=== PATIENT | male | born 1995 | race American Indian/Alaskan Native ===

== ENCOUNTER 2021-03-12 10:55 | Emergency (ER) | payer OTHER, SELFPAY ==
[2021-03-12 11:32] VITALS: BP 117/68
[2021-03-12] MEDS ORDERED: ACETAMINOPHEN 325 MG TAB PO ONE (12:04)
[2021-03-12] MEDS ORDERED: ONDANSETRON 4 MG ODT TAB PO ONE (12:04)
--- NOTE | 2021-03-12 12:05 | Emergency Department Report ---
ED General Adult HPI - General Chief complaint: Upper Respiratory Infection Stated complaint: FLU SX/SOB/N/V PUI?: Yes Time Seen by Provider: 03/12/21 11:34 Source: patient, EMS ( EMS documentation not available at time of chart dictation ), RN notes reviewed Mode of arrival: Ambulatory Limitations: No Limitations - History of Present Illness Initial comments: The patient was evaluated in the emergency department for symptoms described in the history of present illness. He/she was evaluated in the context of the global COVID-19 pandemic, which necessitated consideration that the patient might be at risk for infection with the virus that causes COVID-19. Institutional protocols and algorithms that pertain to the evaluation of patients at risk for COVID-19 are in a state of rapid change based on information released by regulatory bodies including the CDC and federal and state organizations. These policies and algorithms were followed during the patient's care in the emergency department. Please note that these policies, procedures and recommendations changed on a rapid basis. During the entire history and physical examination, I had on complete personal protective equipment. The patient is a 25-year-old gentleman, who has a past medical history of not being vaccinated against COVID-19, and who also consumes recreational marijuana. His primary care doctor is with a [facility]. He presents to the ER with 1 day of shortness of breath, nausea, vomiting, diarrhea, headache, generalized weakness, loss of taste and smell. He states "do whatever you have to do to get me better, I am ready for that s hot." The patient reports that he has not taken anything [id number] for his symptoms. The patient denies sick contacts. The patient denies urinary symptoms. -: Gradual, hour(s) Location: head, back, left, right, upper extremity, lower extremity Quality: aching Consistency: intermittent Improves with: rest Worsens with: movement - Related Data Previous Rx's Medication Instructions Recorded Last Taken Type Acetaminophen [Non-Aspirin Extra 500 mg PO Q6HR PRN #30 tablet 03/12/21 Unknown Rx Strength] Albuterol Sulfate [Proair 90 mcg IH Q4HR PRN #2 aer.[email or web address] 03/12/21 Unknown Rx Respiclick] Ondansetron [Zofran Odt] 4 mg PO Q8HR PRN #20 tab.rapdis 03/12/21 Unknown Rx Allergies Allergy/AdvReac Type Severity Reaction Status Date / Time peanut Allergy Hives Verified 03/12/21 11:33 ED Review of Systems ROS: Stated complaint: FLU SX/SOB/N/V Other details as noted in HPI Constitutional: malaise, weakness, other (Positive loss of taste and smell). denies: fever Eyes: denies: eye discharge ENT: congestion Respiratory: cough Cardiovascular: denies: syncope Gastrointestinal: nausea, vomiting, diarrhea. denies: abdominal pain Genitourinary: denies: dysuria Musculoskeletal: arthralgia, myalgia Neurological: headache, weakness ED Past Medical Hx - Social History Smoking Status: Current Every Day Smoker Substance Use Type: None - Medications Home Medications: Home Medications Medication Instructions Recorded Confirmed Last Taken Type Acetaminophen [Non-Aspirin Extra 500 mg PO Q6HR PRN #30 tablet 03/12/21 Unknown Rx Strength] Albuterol Sulfate [Proair 90 mcg IH Q4HR PRN #2 aer.[email or web address] 03/12/21 Unknown Rx Respiclick] Ondansetron [Zofran Odt] 4 mg PO Q8HR PRN #20 tab.rapdis 03/12/21 Unknown Rx ED Physical Exam - General Limitations: No Limitations General appearance: alert, in no apparent distress - Head Head exam: Present: atraumatic, normocephalic - Eye Eye exam: Present: normal appearance, EOMI. Absent: nystagmus Pupils: Present: other (Visual acuity intact to finger counting, color perception, reading at a close distance) - ENT ENT exam: Present: normal exam, normal orophraynx, mucous membranes moist, normal external ear exam - Neck Neck exam: Present: normal inspection, full ROM - Respiratory Respiratory exam: Present: other (Pulmonary auscultation not performed secondary to lack of disposable stethoscope). Absent: respiratory distress, stridor - Cardiovascular Cardiovascular Exam: Present: other (Cardiac auscultation not performed secondary to lack of disposable stethoscope) - GI/Abdominal GI/Abdominal exam: Present: soft. Absent: distended, tenderness, guarding, rebound, rigid, pulsatile mass - Rectal Rectal exam: Present: deferred - Extremities Exam Extremities exam: Present: normal inspection, full ROM, other (2+ pulses noted in the bilateral upper and lower extremities. There is no palpable cord. negative Homans sign. Muscular compartments are soft. The pelvis is stable.). Absent: pedal edema, calf tenderness - Back Exam Back exam: Present: normal inspection, full ROM. Absent: tenderness, CVA tenderness (R), CVA tenderness (L), paraspinal tenderness, vertebral tenderness - Neurological Exam Neurological exam: Present: alert, oriented X3, normal gait (There is no past- pointing. There is no pronator drift.), other (No facial droop. Tongue midline. Extraocular movements intact bilaterally. Facial sensation intact to light touch in V1, V2, V3 distribution bilaterally. 5 and a 5 strength in 4 extremities. Sensation intact to light touch in 4 extremities.). Absent: motor sensory deficit - Psychiatric Psychiatric exam: Present: normal affect, normal mood - Skin Skin exam: Present: warm, dry, intact, normal color. Absent: rash ED Course Vital Signs 03/12/21 03/12/21 11:31 12:13 Temperature 98.6 F Pulse Rate 61 Respiratory 17 18 Rate Blood Pressure 117/68 [Right] O2 Sat by Pulse 100 Oximetry ED Medical Decision Making - Lab Data Result diagrams: 03/12/21 12:13 03/12/21 12:13 Vital Signs 03/12/21 03/12/21 11:31 12:13 Temperature 98.6 F Pulse Rate 61 Respiratory 17 18 Rate Blood Pressure 117/68 [Right] O2 Sat by Pulse 100 Oximetry Lab Results 03/12/21 03/12/21 03/12/21 Range/Units 12:13 12:13 12:13 WBC 7.8 (4.5-11.0) K/mm3 RBC 5.28 H (3.65-5.03) M/mm3 Hgb 16.2 H (11.8-15.2) gm/dl Hct 45.2 (35.5-45.6) % MCV 86 (84-94) fl MCH 31 (28-32) pg MCHC 36 H (32-34) % RDW 14.1 (13.2-15.2) % Plt Count 203 (140-440) K/mm3 Lymph % (Auto) 14.7 (13.4-35.0) % [place] % (Auto) 5.9 (0.0-7.3) % Eos % (Auto) 0.2 (0.0-4.3) % Baso % (Auto) 0.3 (0.0-1.8) % Lymph # (Auto) 1.1 L (1.2-5.4) K/mm3 [place] # (Auto) 0.5 (0.0-0.8) K/mm3 Eos # (Auto) 0.0 (0.0-0.4) K/mm3 Baso # (Auto) 0.0 (0.0-0.1) K/mm3 Seg Neutrophils % 78.9 H (40.0-70.0) % Seg Neutrophils # 6.2 (1.8-7.7) K/mm3 PT 12.6 (12.2-14.9) Sec. INR 0.85 L (0.87-1.13) APTT 27.4 (24.2-36.6) Sec. Sodium 137 (137-145) mmol/L Potassium 4.0 (3.6-5.0) mmol/L Chloride 103.2 (98-107) mmol/L Carbon Dioxide 22 (22-30) mmol/L Anion Gap 16 mmol/L BUN 9 (9-20) mg/dL Creatinine 0.8 (0.8-1.3) mg/dL Estimated GFR > 60 ml/min BUN/Creatinine Ratio 11 % Glucose 99 (75-100) mg/dL Calcium 10.0 (8.4-10.2) mg/dL Magnesium 1.80 (1.7-2.3) mg/dL Total Bilirubin 1.30 H (0.1-1.2) mg/dL AST 19 (5-40) units/L ALT 13 (7-56) units/L Alkaline Phosphatase 48 (35-129) units/L Total Creatine Kinase 214 H (55-170) units/L Total Protein 8.0 (6.3-8.2) g/dL Albumin 4.9 (3.9-5) g/dL Albumin/Globulin Ratio 1.6 % - Radiology Data Radiology results: report reviewed, image reviewed CHEST 1 VIEW 03/12/2021 12:09 PM INDICATION / CLINICAL INFORMATION: n/v weak suspectd covid. COMPARISON: None available. FINDINGS: SUPPORT DEVICES: None. HEART / MEDIASTINUM: No significant abnormality. LUNGS / PLEURA: No significant pulmonary or pleural abnormality. No pneumothorax. ADDITIONAL FINDINGS: No significant additional findings. IMPRESSION: 1. No acute findings. Signer Name: Rhett Retana MD Signed: 03/12/2021 12:01 PM Workstation Name: [email or web address] - Medical Decision Making Differential diagnosis, including but not limited to: COVID-19, influenza, foodborne illness, electrolyte derangement, renal insufficiency, hepatic insufficiency Assessment and plan: 25-year-old gentleman, who was afebrile, with reassuring vital signs, not vaccinated against COVID-19, with a soft benign belly, clear c hest x-ray, saturating 96% on room air, able to ambulate without desaturation on room oxygen for 5 minutes, with nonspecific viral symptomatology, suspicious for Covid. He requested laboratory studies, which were obtained and nonactionable. An x- ray the chest is unremarkable. On multiple repeat evaluations, the patient is noted to be talking on his cell phone, and he does not appear to be in any acute distress. The patient felt improved after supportive and symptomatic therapy. He does not require medical admission at this time, and may follow-up with the outpatient [facility] team for further medical care. Return precautions reviewed. All questions answered. Critical care attestation.: If time is entered above; I have spent that time in minutes in the direct care of this critically ill patient, excluding procedure time. ED Disposition Clinical Impression: Suspected COVID-19 virus infection, COVID-19 vaccination not done Disposition: 01 HOME / SELF CARE / HOMELESS Is pt being admited?: No Does the pt Need Aspirin: No Condition: Good Instructions: COVID-19 Additional Instructions: As we discussed, the patient most likely has novel coronavirus/COVID. the sy mptoms of COVID will typically persist 10 to 14 days. There is no cure at this time for COVID. Please make certain to self isolate and self quarantine, follow-up with an outpatient primary care doctor within the next 3 to 5 days, wash hands with soap and water frequently, thoroughly and often, patient may take the prescribed medications as needed and directed. Advance diet and drink plenty of fluids as tolerated. Avoid interactions with the very elderly, very young, and those with chronic m edical conditions. Return to the emergency room right away with new pain, worsening pain, migration of pain, projectile vomiting, change in mental status, confusion, inability to tolerate liquid feeds, new, worsened or different symptoms not present on the initial emergency room evaluation. We also recommend that the patient discontinue consumption of marijuana and smoke products. Referrals: [facility] [Provider Group] - 3-5 Days Forms: Work/School Release Form(ED)
[2021-03-12 12:47] LABS: Alanine Aminotransferase 13 units/L (7-56); Albumin 4.9 g/dL (3.9-5); BUN/Creatinine Ratio 11; Blood Urea Nitrogen 9 mg/dL (9-20); Hemolysis Index 10
--- NOTE | 2021-03-12 13:05 | XRay Report ---
CHEST 1 VIEW 03/12/2021 12:09 PM INDICATION / CLINICAL INFORMATION: n/v weak suspectd covid. COMPARISON: None available. FINDINGS: SUPPORT DEVICES: None. HEART / MEDIASTINUM: No significant abnormality. LUNGS / PLEURA: No significant pulmonary or pleural abnormality. No pneumothorax. ADDITIONAL FINDINGS: No significant additional findings. IMPRESSION: 1. No acute findings. Signer Name: Rhett Retana MD Signed: 03/12/2021 1:01 PM Workstation Name: [id number]
[2021-03-12 13:36] LABS: Basophils % (Auto) 0.3 % (0.0-1.8); Eosinophils % (Auto) 0.2 % (0.0-4.3); Lymphocytes # (Auto) 1.1 K/mm3 (1.2-5.4); Lymphocytes % (Auto) 14.7 % (13.4-35.0); Mean Corpuscular HGB Conc 36 % (32-34); Mean Corpuscular Volume 86 fl (84-94); Monocytes # (Auto) 0.5 K/mm3 (0.0-0.8); Monocytes % (Auto) 5.9 % (0.0-7.3); Platelet Count 203 K/mm3 (140-440); Red Blood Count 5.28 M/mm3 (3.65-5.03); Red Cell Distribution Width 14.1 % (13.2-15.2)
[2021-03-12 13:37] LABS: Hematocrit 45.2 % (35.5-45.6); Hemoglobin 16.2 gm/dl (11.8-15.2)
[2021-03-12 13:46] LABS: INR 0.85 (0.87-1.13)
[2021-03-12 13:47] LABS: Partial Thromboplastin Time 27.4 Sec. (24.2-36.6)
== END 2021-03-12 14:23 | disposition home or self-care (01) ==
LOC: ED 10:55
DX: R06.02 Shortness of breath (principal); R11.2 Nausea with vomiting, unspecified; R19.7 Diarrhea, unspecified; Z20.822 Contact with and (suspected) exposure to COVID-19; F17.200 Nicotine dependence, unspecified, uncomplicated; Z91.010 Allergy to peanuts; Z79.899 Other long term (current) drug therapy
CPT/HCPCS: 36415; 71045; 80053; 82550; 83735; 85025; 85610; 85730; 99284; Q0162